=== PATIENT | female | born 2005 ===

== ENCOUNTER 2024-07-27 15:38 | Outpatient (CLI) | payer BC, SELFPAY | END 2024-07-27 15:39 | disposition home or self-care (01) | PROVIDERS: PCP Registered Nurse; Visit Provider Registered Nurse | DX: F41.9 Anxiety disorder, unspecified (principal); F43.10 Post-traumatic stress disorder, unspecified | CPT/HCPCS: 80048; 82306; 84443; 84702 ==

== ENCOUNTER 2024-10-04 11:06 | Outpatient (CLI) | payer BC, SELFPAY | END 2024-10-04 11:07 | disposition home or self-care (01) | PROVIDERS: PCP Registered Nurse; Visit Provider Nurse Practitioner | DX: M25.50 Pain in unspecified joint (principal) | CPT/HCPCS: 80053; 85651; 86140 ==

== ENCOUNTER 2024-10-12 09:17 | Outpatient (CLI) | payer BC, SELFPAY | END 2024-10-12 09:18 | disposition home or self-care (01) | PROVIDERS: PCP Registered Nurse; Visit Provider Registered Nurse | DX: M25.50 Pain in unspecified joint (principal); R82.90 Unspecified abnormal findings in urine | CPT/HCPCS: 86038; 86140; 86200; 86431; 86618; 87086 ==

== ENCOUNTER 2024-11-16 09:52 | Outpatient (CLI) | payer BC, SELFPAY | END 2024-11-16 09:53 | disposition home or self-care (01) | LOC: NFLDREF 09:54 | PROVIDERS: PCP Registered Nurse; Visit Provider Registered Nurse | DX: M25.59 Pain in other specified joint (principal) | CPT/HCPCS: 86140 ==

== ENCOUNTER 2025-03-22 16:15 | Outpatient (CLI) | payer BC, SELFPAY | END 2025-03-22 16:16 | disposition home or self-care (01) | PROVIDERS: PCP Registered Nurse; Visit Provider Registered Nurse | DX: R63.5 Abnormal weight gain (principal); R35.0 Frequency of micturition; Z13.6 Encounter for screening for cardiovascular disorders | CPT/HCPCS: 80053; 80061; 84443; 86376; 87086 ==